=== PATIENT | male | born 1955 | race Caucasian/White ===

== ENCOUNTER 2017-10-25 10:37 | Emergency (ER) | payer MEDICAID ==
[~2017-10-25] VITALS: Ht 167.6 cm; Wt 76.2 kg
[2017-10-25 11:05] VITALS: BP 118/70
== END 2017-10-25 13:51 | disposition home or self-care (01) ==
LOC: ER 10:37
DX: J02.9 Acute pharyngitis, unspecified (principal)

== ENCOUNTER → 2019-11-01 | Outpatient (CLI) | payer SELFPAY ==
[~2019-11-01] MED LIST: MVI in SODIUM CHLORIDE 0.9% 1,010 ML ONE; MVI in SODIUM CHLORIDE 0.9% 500 ML IVB ONE
[2019-11-01 11:17] VITALS: BP 138/75
--- NOTE | 2019-11-01 11:17 | NUR ---
PATIENT SENT FROM MD WITH ORDERS ENTERED. PT ALERT AND AWAKE, NO S/S OF RESPIRATORY DISTRESS/SOB. VSS. WILL CARRY OUT MD ORDERS.
--- NOTE | 2019-11-01 11:30 | NUR ---
IV insertion IV access obtained BY NIKKIE SMITH, via clean sterile technique by inserting [22] gauge catheter at [LAC] after [1] attempt(s). IV secured properly. No trauma to site. Patient tolerated procedure well.
--- NOTE | 2019-11-01 13:48 | NUR ---
IV removal IV DC'd by this RN with sterile technique, catheter fully intact. Pressure dressing applied to site. Patient tolerated procedure well. Discharged with aftercare instructions per MD.
[2019-11-01 14:00] VITALS: BP 124/63
--- NOTE | 2019-11-01 14:00 | NUR ---
[facility] Discharge Instructions See e-MAR for any mediations given with this visit. Patient education given on disease process. Patient verbalized understanding. Previous labs reviewed. Patient discharged in stable condition with after care instructions and follow up appointment. NOTES MVI IV [id number] ADMIN BY NIKKIE SMITH
== END | disposition home or self-care (01) ==
LOC: CHF HDHVI 11:11
PROVIDERS: ATTEND Internal Medicine Cardiovascular Disease
DX: E86.0 Dehydration (principal); R53.83 Other fatigue; R06.02 Shortness of breath; I10 Essential (primary) hypertension
CPT/HCPCS: 96365; 96366; G0463; J3411; J3475

== ENCOUNTER → 2019-12-20 | Outpatient (CLI) | payer MEDICAID ==
[~2019-12-20] MED LIST changes: +ASPI-404 PO; +CITA10TA70 PO; +FOLI1TAB6 PO; +MAGN400T40 PO; +METO25TA93 PO; -MVI in SODIUM CHLORIDE 0.9% 1,010 ML ONE; -MVI in SODIUM CHLORIDE 0.9% 500 ML IVB ONE
[2019-12-20 08:45] VITALS: BP 129/71
--- NOTE | 2019-12-20 08:45 | NUR ---
[facility] PT ARRIVED TO THE [facility] FOR PRE OP LABS, EKG, AND CXR. A/O X4 VSS
[2019-12-20 09:30] VITALS: BP 126/74
--- NOTE | 2019-12-20 09:30 | NUR ---
Pre-Op Discharge Summary: See e-MAR for any medications given for this visit. Pre-op orders received and carried out per MD of EKG, LABS and chest xrays. Patient given a copy of EKG with instructions to go to [facility] out patient for further follow up care. NOTE EKG DONE BY MICAELA MATRE
[2019-12-20 12:05] LABS: Basophils # (auto) 0 uL; Lymphocytes # (auto) 0.9 uL; Monocytes # (auto) 0.4 uL; Nucleated Red Blood Cells % 0.1 %; White Blood Cell 4.6 10^3/uL (4.4-10.8)
[2019-12-20 12:08] LABS: Eosinophils # (auto) 0.5 uL; Eosinophils % (auto) 9.7 % (0.0-7.0); Hematocrit 40.1 % (41.0-53.0); Hemoglobin 12.4 g/dL (13.5-17.5); Lymphocytes % (auto) 20.3 % (10.0-50.0); Mean Corpuscular Hemoglobin 20.4 pg (28.0-32.0); Mean Corpuscular Volume 65.8 fL (80.0-100.0); Monocytes % (auto) 8.8 % (0.0-12.0); Neutrophils # (auto) 2.8 uL; Neutrophils % (auto) 60.2 % (37.0-80.0); Red Blood Cells 6.09 10^6/uL (4.5-5.90); Red Cell Distribution Width 16.1 % (11.8-14.3)
[2019-12-20 12:13] LABS: BUN/Creatinine Ratio 13.8; Calcium 9.1 mg/dL (8.5-10.1); Potassium 4.6 mmol/L (3.5-5.1)
[2019-12-20 12:19] LABS: INR 1.06 (0.9-1.15); Partial Thromboplastin Time 25.7 sec (23.64-32.05)
[2019-12-20 14:43] LABS: Platelet Count (auto) 135 10^3/uL (140-450)
== END | disposition home or self-care (01) ==
LOC: Rad HDHVI 08:42
PROVIDERS: ATTEND Internal Medicine Cardiovascular Disease
DX: Z01.812 Encounter for preprocedural laboratory examination (principal); I20.9 Angina pectoris, unspecified; I10 Essential (primary) hypertension
CPT/HCPCS: 36415; 80048; 85025; 85610; 85730; 93005; G0463; 71046

== ENCOUNTER 2019-12-21 06:46 | Day surgery (SDC) | payer MEDICAID ==
[~2019-12-21] VITALS: Ht 167.6 cm; Wt 68.0 kg
[~2019-12-21 06:46] MED LIST changes: -ASPI-404 PO
[2019-12-21] MEDS ORDERED: IOHEXOL 350 MG/ML 100ML IJ ONE (08:05)
[2019-12-21] MEDS ORDERED: LIDOCAINE 2%HCL (LOCAL ANESTH.) INJ 20ML MDV ONE (08:05)
[2019-12-21] MEDS ORDERED: ANGIOMAX 250 MG VIAL IV ONE (08:59)
[2019-12-21] MEDS ORDERED: MIDAZOLAM HCL 1MG/1ML-2 ML VIAL ONE (08:59)
[2019-12-21] MEDS ORDERED: fentaNYL CITRATE 100 MCG/2 ML VL ONE (08:59)
[2019-12-21] MEDS ORDERED: SODIUM CHL 0.9% 0 ML ONE (08:59)
[2019-12-21] MEDS ORDERED: ONDANSETRON HCL 4 MG/2 ML VIAL IV PRN (10:15)
[2019-12-21] MEDS ORDERED: ACETAMINOPHEN 500 MG TAB PO PRN (10:15)
[2019-12-21] MEDS ORDERED: SODIUM CHL 0.9% 500 ML IV ONE (10:15)
[2019-12-21] MEDS ORDERED: HYDROcodone-ACET 5/325MG TAB PO PRN (10:15)
[2019-12-21] MEDS ORDERED: ASPI-404 PO (10:18)
== END 2019-12-21 11:55 | disposition home or self-care (01) ==
LOC: CATH 06:46
PROVIDERS: ATTEND Internal Medicine Cardiovascular Disease
DX: R94.39 Abnormal result of other cardiovascular function study (principal); R07.89 Other chest pain; R06.02 Shortness of breath; I10 Essential (primary) hypertension; Z82.49 Family history of ischemic heart disease and other diseases of the circulatory system; Z79.82 Long term (current) use of aspirin; Z79.899 Other long term (current) drug therapy
CPT/HCPCS: 93458; C1760; C1894; J1644; J2250; J3010; J7030; 99152; 99153